=== PATIENT | female | born 1985 | race Caucasian/White ===

== ENCOUNTER → 2016-09-21 | Outpatient (CLI) | payer BC, OTHER ==
[~2016-09-21] MED LIST: GASTROGRAFIN SOLUTION 30ML (Q9963) As Ordered ONE; ISOVUE-370 76% 100ML VIAL (Q9967) As Ordered ONE
--- NOTE | 2016-09-21 21:02 | REP ---
CT ABDOMEN AND PELVIS WITHOUT AND WITH CONTRAST: 09/21/2016. Clinical history: Abnormal weight loss, diarrhea, irritable bowel syndrome. No comparison study. Technique: Oral Gastrografin mixture 10 ml in 290 ml of flavored water for two doses per our bowel contrast protocol. Scanning then performed and then bolus of 100 ml of Isovue 370 given and scanning through the abdomen and pelvis with both coronal and sagittal reconstructions. CT abdomen: Lung bases are clear. Heart is not enlarged. There is no pericardial thickening or effusion. No hiatal hernia. Stomach well filled with oral contrast, but contrast also throughout small bowel loops. There is no hepatosplenomegaly, focal hepatic or splenic mass, intrahepatic biliary dilatation nor adjacent ascites. Gallbladder shows no calcified stone or mass. Pancreas shows no mass, ductal dilatation or adjacent inflammatory change. Small bowel loops are contrast or fluid-filled, but not abnormally dilated and show no definite mass. The colon from the right side proximally to the hepatic flexure, transverse colon, splenic flexure and left colon shows some areas of edema, wall thickening and enhancement of the mucosa and wall, but without inflammatory changes adjacent. This may reflect some mild colitis. I do not see pleural effusion, ascites nor evidence for free air on lung window review of all CT slices. Kidneys show function without obstruction, mass or stone. The adrenal glands are normal. Bone windows show the lumbar and lower thoracic spine, posterior elements, and ribs to be intact. CT pelvis: The bony hips, pelvis, sacrum, SI joints and lumbosacral junction were unremarkable. The cecum showed no inflammatory changes. Terminal ileum is without stricture or adjacent inflammatory change. Contrast reaches distal small bowel, but not the terminal ileum. Uterus anteverted, slightly tilted towards. A few small follicles are noted in both ovaries. No mass. No pelvic free fluid. Distal left colon, sigmoid and rectum with equivocal enhancement of the wall and mucosa suggesting colitis. No ascites or free air. No adenopathy in the abdomen or pelvis. Impression: 1. Findings suggest some colitis extending from just above the cecum through the rectosigmoid without definite involvement of the cecum or terminal ileum. 2. There is no ascites, inflammatory changes in the fat adjacent to this enhancing colon wall nor is there adenopathy or free air. 3. Small bowel loops unremarkable. 4. Solid organs, gallbladder, pancreas, adrenal glands and kidneys intact. Signed by Pollo Caputo MD 09/22/2016 09:28 A
== END ==
LOC: M RAD 16:26
PROVIDERS: ATTEND Internal Medicine Gastroenterology
DX: R93.3 Abnormal findings on diagnostic imaging of other parts of digestive tract (principal); R63.4 Abnormal weight loss; R19.7 Diarrhea, unspecified; K58.9 Irritable bowel syndrome, unspecified
CPT/HCPCS: 74178; 83630; 87507; Q9963; Q9967

== ENCOUNTER → 2016-10-04 | Outpatient (CLI) | payer BC, OTHER ==
[~2016-10-04] VITALS: Ht 157.5 cm; Wt 58.2 kg
[~2016-10-04] MED LIST changes: +ALIG4CAP PO; +DICY10SO PO; -GASTROGRAFIN SOLUTION 30ML (Q9963) As Ordered ONE; -ISOVUE-370 76% 100ML VIAL (Q9967) As Ordered ONE; +LIDOCAINE 2% INJ 100 MG/5 ML SDV (FOR ANES.) As Ordered ONE; +LINZ290C PO; +MULT1TAB10 PO; +NEUR300C PO; +NS 1,000 ML IV SCH; +PROPOFOL 200 MG/20 ML VIAL As Ordered ONE; +STOO100T PO
--- NOTE | 2016-10-04 15:27 | ROOR ---
Patient Name: Debra Vaughn Procedure Date: 10/04/2016 3:16 PM Date of : 1985 Age: 30 Room: [facility] Gender: Female Note Status: Finalized Procedure: Upper GI endoscopy Indications: Epigastric abdominal pain, Generalized abdominal pain, Irritable bowel syndrome Providers: Hesham YAO MD Referring MD: Uriah Matos MD Requesting Provider: Medicines: Monitored Anesthesia Care Complications: No immediate complications. Procedure: Pre-Anesthesia Assessment: - The heart rate, respiratory rate, oxygen saturations, blood pressure, adequacy of pulmonary ventilation, and response to care were monitored throughout the procedure. The Endoscope was introduced through the mouth, and advanced to the second part of duodenum. The upper GI endoscopy was accomplished without difficulty. The patient tolerated the procedure well. Findings: The esophagus was normal. The stomach was normal. The examined duodenum was normal. Impression: - Normal esophagus. - Normal stomach with a very small (insignificant) hiatal hernia. - Normal examined duodenum. - No specimens collected. Recommendation: - Continue present medications. - Observe patient's clinical course. Hesham Yao MD Hesham YAO MD 10/04/2016 3:26:51 PM This report has been signed electronically. Number of Addenda: 0 Note Initiated On: 10/04/2016 3:16 PM Estimated Blood Loss: Estimated blood loss: none.
--- NOTE | 2016-10-04 15:45 | ROOR ---
Patient Name: Debra Vaughn Procedure Date: 10/04/2016 3:17 PM Date of : 1985 Age: 30 Room: [facility] Gender: Female Note Status: Finalized Procedure: Colonoscopy Indications: Generalized abdominal pain, Clinically significant diarrhea of unexplained origin, Abnormal CT of the GI tract, Exclusion of colitis, Irritable bowel syndrome Providers: Hesham YAO MD Referring MD: Uriah Matos MD Requesting Provider: Medicines: Monitored Anesthesia Care Complications: No immediate complications. Procedure: Pre-Anesthesia Assessment: - The heart rate, respiratory rate, oxygen saturations, blood pressure, adequacy of pulmonary ventilation, and response to care were monitored throughout the procedure. The Colonoscope was introduced through the anus and advanced to 5 cm into the ileum. The colonoscopy was performed without difficulty. The patient tolerated the procedure well. The quality of the bowel preparation was good. Findings: The perianal and digital rectal examinations were normal. Internal hemorrhoids were found during retroflexion. The hemorrhoids were small. Mild melanosis was found in the entire colon. (suggestive of current or previous chronic laxative use). The colon (entire examined portion) was long/redundant. The colon (entire examined portion) appeared normal. The terminal ileum appeared normal. Biopsies for histology were taken with a cold forceps from the entire colon for evaluation of microscopic colitis. Impression: - Internal hemorrhoids. - Mild melanosis and somewhat long redundant colon. - The entire examined colon is otherwise normal. - The examined portion of the ileum was normal. - Biopsies were taken with a cold forceps for evaluation of microscopic colitis. Recommendation: - Continue present medications. - Telephone endoscopist for pathology results in 2 weeks. Hesham Yao MD Hesham YAO MD 10/04/2016 3:45:12 PM This report has been signed electronically. Number of Addenda: 0 Note Initiated On: 10/04/2016 3:17 PM Estimated Blood Loss: Estimated blood loss: none.
[2016-10-04 16:05] VITALS: BP 105/68
== END | disposition home or self-care (01) ==
LOC: M OPP 13:17
PROVIDERS: ATTEND Internal Medicine Gastroenterology
DX: K64.8 Other hemorrhoids (principal); K63.89 Other specified diseases of intestine; K58.9 Irritable bowel syndrome, unspecified; K44.9 Diaphragmatic hernia without obstruction or gangrene